=== PATIENT | female | born 1990 | race Caucasian/White ===

== ENCOUNTER 2016-09-14 07:44 | Inpatient (IN) | END 2016-09-16 18:29 | disposition home or self-care (01) | DRG 865 | DX: B34.9 Viral infection, unspecified (principal); D65 Disseminated intravascular coagulation [defibrination syndrome]; R56.9 Unspecified convulsions; R16.1 Splenomegaly, not elsewhere classified; D58.9 Hereditary hemolytic anemia, unspecified; D59.9 Acquired hemolytic anemia, unspecified; D72.820 Lymphocytosis (symptomatic); D72.810 Lymphocytopenia; G43.109 Migraine with aura, not intractable, without status migrainosus; D64.9 Anemia, unspecified ==